=== PATIENT | male | born 1990 | race Caucasian/White ===

== ENCOUNTER 2023-03-24 13:16 | Emergency (ER) | payer OTHER ==
[~2023-03-24] VITALS: Ht 172.7 cm; Wt 94.9 kg
[2023-03-24] MEDS ORDERED: methocarbamoL 500 MG TAB PO ONE (16:20)
[2023-03-24] MEDS ORDERED: KETOROLAC 30 MG/ML 1ML VIAL IV ONE (16:20)
[2023-03-24 16:49] LABS: BASO % 0.3 % (0.0-1.0); EOS # 0.1 10^3/uL (0.0-0.5); EOS % 0.8 % (0.0-3.0); HEMOGLOBIN 15.6 g/dl (13.5-17.5); LYMPH # 1.6 10^3/uL (1.5-5.0); LYMPH % 22.2 % (24.0-44.0); MEAN CORPUSCULAR HEMOGLOBIN 29.9 pg (27.0-33.0); MEAN CORPUSCULAR HGB CONC 33.9 g/dl (32.0-36.5); MEAN CORPUSCULAR VOLUME 88.1 fl (80.0-96.0); MONO # 0.6 10^3/uL (0.0-0.8); MONO % 8.6 % (2.0-8.0); NEUTROPHILS # 4.9 10^3/uL (1.5-8.5); PLATELET COUNT, AUTOMATED 245 10^3/uL (150-450); RED BLOOD COUNT 5.22 10^6/uL (4.30-6.10); WHITE BLOOD COUNT 7.2 10^3/uL (4.0-10.0)
[2023-03-24 17:20] LABS: BLOOD UREA NITROGEN 15 MG/DL (9-23); CALCIUM LEVEL 9.4 MG/DL (8.5-10.1); CARBON DIOXIDE LEVEL 31 MMOL/L (20-31); CHLORIDE LEVEL 103 MMOL/L (98-107); CREATININE FOR GFR 0.99 MG/DL (0.70-1.30); GLOMERULAR FILTRATION RATE > 60.0 (>60); GLUCOSE, FASTING 76 MG/DL (60-100); POTASSIUM SERUM 4.4 MMOL/L (3.5-5.1); SODIUM LEVEL 139 MMOL/L (136-145)
[2023-03-24 17:44] VITALS: BP 138/73; TEMP 96.9; O2SAT 100
[2023-03-24] MEDS ORDERED: METH-1164 PO (18:22)
[2023-03-24] MEDS ORDERED: IBUP-1022 PO (18:22)
== END 2023-03-24 18:38 | disposition home or self-care (01) ==
LOC: M ED 13:16
DX: M47.22 Other spondylosis with radiculopathy, cervical region (principal); M54.50 Low back pain, unspecified; Z79.1 Long term (current) use of non-steroidal anti-inflammatories (NSAID)
CPT/HCPCS: 70450; 72125; 80048; 85025; 87486; 87581; 87633; 87798; 87880; 96374; 99284; J1885